=== PATIENT | male | born 1940 | race Caucasian/White ===

== ENCOUNTER → 2016-09-10 | Outpatient (CLI) | payer MEDICARE, OTHER ==
[2016-09-10 14:15] LABS: ANION GAP 7 MEQ/L (8-16); BLOOD UREA NITROGEN 16 MG/DL (7-18); CALCIUM LEVEL 9.3 MG/DL (8.8-10.2); CARBON DIOXIDE LEVEL 29 MEQ/L (21-32); CHLORIDE LEVEL 105 MEQ/L (98-107); CREATININE FOR GFR 0.71 MG/DL (0.70-1.30); GLOMERULAR FILTRATION RATE > 60.0 (>42); GLUCOSE, FASTING 68 MG/DL (83-110); POTASSIUM SERUM 4.8 MEQ/L (3.5-5.1); SODIUM LEVEL 141 MEQ/L (136-145)
== END ==
LOC: M SMT 10:51
PROVIDERS: ATTEND Urology
DX: R97.8 Other abnormal tumor markers (principal); R97.20 Elevated prostate specific antigen [PSA]
CPT/HCPCS: 36415; 80048; 84153; G0463

== ENCOUNTER → 2016-09-22 | Outpatient (CLI) | payer MEDICARE, OTHER ==
--- NOTE | 2016-09-22 15:29 | REP ---
MULTIPARAMETRIC PROSTATE MRI STUDY WITH PRE- AND POST GADOLINIUM ENHANCED IMAGING: TECHNIQUE: Using a phased array surface coil, small field of view imaging was acquired using T2-weighted scans in the axial, coronal, and sagittal imaging planes. Small field of view diffusion-weighted sequences are acquired. Small field of view axial T1-weighted scans are acquired dynamically after the intravenous administration of 15 mL of ProHance. Using a large field of view, the entire pelvis to the level of the aortic bifurcation was imaged using pre-contrast axial T1 and post-contrast axial T1 fat-saturation images. HISTORY: Elevated prostate specific antigen. MRI FINDINGS: There is no MR evidence of pelvic or inguinal lymphadenopathy. No bone lesion is seen. Seminal vesicles appear symmetrical and unremarkable. The prostate measures 6.1 x 5.3 x 5.2 cm for a total volume of 85.4 mL. Nodular signal and hypertrophy of the central gland and transitional zone is consistent with benign prostatic hypertrophy. Three areas of abnormal signal intensity and contrast enhancement are identified in the prostate as regions of interest. First in the left basilar mid anterior transition zone there is an area of type 3 enhancement with mixed signal on T2 and diffusion weighted images. The area measures 1.8 x 0.8 x 2.3 cm for a total volume of 1.82 mL. Overall level of suspicion is 3 out of 5 with clinically significant cancer equivocal. Second in the right mid and apical posterior transitional zone there is an oval area of low signal on T2, which demonstrates predominantly type 3 enhancement characteristics. The area measures 1.5 x 0.9 x 2.0 cm. Overall level of suspicion is 4 out of 5 with clinically significant cancer likely to be present. Lastly, in the bilateral mid and apical medial peripheral zone there are geographic areas of somewhat low signal on T2-weighted images in a heterogeneous pattern. These may represent areas of prostatitis. The area measures approximately 5.2 x 0.3 x 2.0 cm for a total volume of 4.59 mL. Overall level of suspicion is 2 out of 5 with clinically significant cancer unlikely to be present. IMPRESSION: Three focal abnormalities seen in the prostate gland as discussed in detail above as regions of interest on the [employer] software for MR ultrasound fusion utilization. Signed by Salinas Leyva MD 09/22/2016 05:14 P
== END ==
LOC: M RAD 12:43
PROVIDERS: ATTEND Family Medicine
DX: R93.5 Abnormal findings on diagnostic imaging of other abdominal regions, including retroperitoneum (principal); R97.8 Other abnormal tumor markers
CPT/HCPCS: 72197; A9576

== ENCOUNTER → 2016-11-12 | Outpatient (CLI) | payer MEDICARE, OTHER ==
--- NOTE | 2016-11-12 11:35 | REP ---
Prostate sonography: History: Elevated PSA. Sonographic findings: Trans rectal prostate sonography demonstrates unremarkable seminal vesicles. Prostate gland is heterogeneously enlarged with calcifications and cystic changes noted. Glandular dimensions are measured at 6.2 x 4.4 x 5.7 cm with a calculated glandular volume of 80.2 ml. The 0.9 cm nodule is visible in the right side of the prostate gland and another 0.9 cm nodule is visible on the left. Transrectal sonographic guidance provided to Dr. Wilson who performed trans rectal ultrasound guided needle biopsy procedure . Signed by Jesús Hazel MD 11/12/2016 11:27 A
== END ==
LOC: M SMT PRO 08:50
PROVIDERS: ATTEND Urology
DX: R97.8 Other abnormal tumor markers (principal); R97.20 Elevated prostate specific antigen [PSA]
CPT/HCPCS: 55700; 76872; 76942; G0416

== ENCOUNTER → 2016-11-18 | Outpatient (REF) | payer MEDICARE, OTHER | LOC: M SMT 16:51 | PROVIDERS: ATTEND Urology | DX: N40.1 Benign prostatic hyperplasia with lower urinary tract symptoms (principal) | CPT/HCPCS: 81001; 87086; G0463 ==

== ENCOUNTER → 2017-07-06 | Outpatient (CLI) | payer MEDICARE, OTHER | LOC: M RAD 07:15 | DX: G45.3 Amaurosis fugax (principal) | CPT/HCPCS: 93880 ==

== ENCOUNTER → 2017-11-22 | Outpatient (REF) | payer MEDICARE, OTHER ==
[2017-11-22 18:06] LABS: ANION GAP 6 MEQ/L (8-16); BLOOD UREA NITROGEN 12 MG/DL (7-18); CALCIUM LEVEL 9.1 MG/DL (8.8-10.2); CARBON DIOXIDE LEVEL 28 MEQ/L (21-32); CHLORIDE LEVEL 108 MEQ/L (98-107); CREATININE FOR GFR 0.83 MG/DL (0.70-1.30); GLOMERULAR FILTRATION RATE > 60.0 (>42); GLUCOSE, FASTING 97 MG/DL (70-100); NT-PRO BNP 388 PG/ML (<450); POTASSIUM SERUM 4.3 MEQ/L (3.5-5.1); SODIUM LEVEL 142 MEQ/L (136-145)
== END ==
LOC: M SFHCCLAY 09:57
DX: I51.7 Cardiomegaly (principal); Z95.2 Presence of prosthetic heart valve; D61.818 Other pancytopenia
CPT/HCPCS: 80048

== ENCOUNTER → 2021-10-06 | Outpatient (CLI) | payer MEDICARE, OTHER ==
[~2021-10-06] MED LIST: ATOR1TAB19; DILT180C70; FOLI400T5 PO; LISI5TAB11; MULTLIQ7 PO; OCUV1CAP4 PO; TORS20TA2; WARF-23; [UNRECOGNIZED DRUG - CODE]
== END ==
LOC: M WHC 09:02
PROVIDERS: ATTEND Specialist
DX: D64.9 Anemia, unspecified (principal); K76.9 Liver disease, unspecified

== ENCOUNTER 2021-10-30 12:38 | Inpatient (IN) | payer MEDICARE, OTHER ==
[~2021-10-30] VITALS: Ht 172.7 cm; Wt 71.0 kg
[~2021-10-30 12:38] MED LIST changes: -ATOR1TAB19; +ATOR1TAB19 PO; -DILT180C70; +DILT180C70 PO; -LISI5TAB11; +LISI5TAB11 PO; -TORS20TA2; +TORS20TA2 PO; -WARF-23; +WARF-23 PO; -[UNRECOGNIZED DRUG - CODE]; +[UNRECOGNIZED DRUG - CODE] PO
[2021-10-30 15:10] LABS: BASO # 0.1 10^3/uL (0.0-0.2); BASO % 1.6 % (0.0-1.0); EOS # 0.2 10^3/uL (0.0-0.5); EOS % 3.4 % (0.0-3.0); HEMATOCRIT 35.8 % (42.0-52.0); HEMOGLOBIN 11.6 g/dl (13.5-17.5); LYMPH # 0.9 10^3/uL (1.5-5.0); LYMPH % 18.4 % (24.0-44.0); MEAN CORPUSCULAR HEMOGLOBIN 31.5 pg (27.0-33.0); MEAN CORPUSCULAR HGB CONC 32.4 g/dl (32.0-36.5); MEAN CORPUSCULAR VOLUME 97.3 fl (80.0-96.0); MONO # 0.6 10^3/uL (0.0-0.8); MONO % 12.5 % (2.0-8.0); NEUTROPHILS # 3.2 10^3/uL (1.5-8.5); NEUTROPHILS % 63.7 % (36.0-66.0); PLATELET COUNT, AUTOMATED 105 10^3/uL (150-450); RED BLOOD COUNT 3.68 10^6/uL (4.30-6.10); WHITE BLOOD COUNT 5.1 10^3/uL (4.0-10.0)
[2021-10-30] MEDS ORDERED: FUROSEMIDE 40MG/4ML VIAL (J1940) IV ONE (15:30)
[2021-10-30 15:43] LABS: ALBUMIN 3.7 GM/DL (3.2-5.2); BILIRUBIN,DIRECT 0.5 MG/DL (0.0-0.2); BILIRUBIN,TOTAL 1.2 MG/DL (0.2-1.0); CALCIUM LEVEL 9.1 MG/DL (8.8-10.2); CREATININE FOR GFR 2.11 MG/DL (0.70-1.30); GLOMERULAR FILTRATION RATE 32.3 (>35); POTASSIUM SERUM 4.8 MEQ/L (3.5-5.1)
[2021-10-30] MEDS ORDERED: WARFARIN SOD 2.5MG TAB PO SCH (17:00)
[2021-10-30] MEDS ORDERED: HEPARIN SOD (PORCINE) 5000UNITS/ML 1ML VIAL/SYRINGE SC SCH (17:30)
[2021-10-30] MEDS: FUROSEMIDE 40MG/4ML VIAL (J1940) IV SCH ×2 (18:00→23:43)
[2021-10-30 18:04] LABS: INR 1.99
[2021-10-30] MEDS ORDERED: WARF-23 PO (18:08)
[2021-10-30] MEDS ORDERED: FOLI400T13 PO (18:08)
[2021-10-30] MEDS ORDERED: SILD20TA50 PO (18:09)
[2021-10-30] MEDS ORDERED: HOME MED LIST COMPLETE! XX SCH (18:10)
[2021-10-30] MEDS ORDERED: FOLIC ACID 1MG TAB PO SCH (21:00)
[2021-10-30] MEDS: lisinopriL 5 MG TAB PO SCH (21:40)
[2021-10-31] VITALS: BP 132/63
[2021-10-31 04:00] VITALS: BP 126/56
[2021-10-31] MEDS: FUROSEMIDE 40MG/4ML VIAL (J1940) IV SCH ×2 (05:40→11:57)
[2021-10-31 06:09] LABS: INR 2.22
[2021-10-31 08:00] VITALS: BP 129/56
[2021-10-31 08:07] LABS: HEMATOCRIT 34.8 % (42.0-52.0); HEMOGLOBIN 10.9 g/dl (13.5-17.5); MEAN CORPUSCULAR HEMOGLOBIN 30.9 pg (27.0-33.0); MEAN CORPUSCULAR HGB CONC 31.3 g/dl (32.0-36.5); MEAN CORPUSCULAR VOLUME 98.6 fl (80.0-96.0); PLATELET COUNT, AUTOMATED 100 10^3/uL (150-450); RED BLOOD COUNT 3.53 10^6/uL (4.30-6.10); WHITE BLOOD COUNT 4.9 10^3/uL (4.0-10.0)
[2021-10-31 08:56] LABS: CALCIUM LEVEL 8.8 MG/DL (8.8-10.2); CREATININE FOR GFR 1.79 MG/DL (0.70-1.30); GLOMERULAR FILTRATION RATE 39.1 (>35); PHOSPHORUS LEVEL 4.1 MG/DL (2.5-4.9); POTASSIUM SERUM 4.4 MEQ/L (3.5-5.1)
[2021-10-31] MEDS ORDERED: ATORVASTATIN 10 MG TAB PO SCH (09:00)
[2021-10-31] MEDS: lisinopriL 5 MG TAB PO SCH (09:52)
[2021-10-31 09:53] VITALS: BP 129/56
[2021-10-31] MEDS ORDERED: METO25TA PO ×2 (13:08→13:20)
[2021-10-31] MEDS ORDERED: WARFARIN SOD 5MG TAB PO SCH (17:00)
== END 2021-10-31 15:34 | disposition home or self-care (01) | DRG 292 ==
LOC: M ED 12:38 → M ED INP 17:28 → M PCU 23:25
PROVIDERS: ADMIT Internal Medicine; ATTEND Internal Medicine
DX: I50.9 Heart failure, unspecified (principal); N17.9 Acute kidney failure, unspecified; I48.91 Unspecified atrial fibrillation; D64.9 Anemia, unspecified; D69.6 Thrombocytopenia, unspecified; Z95.2 Presence of prosthetic heart valve; Z79.01 Long term (current) use of anticoagulants; Z79.899 Other long term (current) drug therapy

== ENCOUNTER 2022-08-16 10:56 | Day surgery (SDC) | payer MEDICARE, OTHER ==
[~2022-08-16] VITALS: Ht 171.4 cm; Wt 73.4 kg
[~2022-08-16 10:56] MED LIST changes: +ASPI81CH33 PO; +ELIQ5TAB PO; +FOLI400T13 PO; +METO1TAB32 PO; +METO25TA PO; +PANT40TA29 PO; +PRESCAP PO; +SILD100T PO; +SILD20TA50 PO; +SILDENAFIL CITRATE PO; +VITMTA PO; +trimix PO
[2022-08-16] MEDS ORDERED: fentaNYL 100 MCG/2 ML INJECTION As Ordered ONE (11:05)
[2022-08-16] MEDS ORDERED: propofoL 500 MG/50 ML VIAL As Ordered ONE (11:05)
[2022-08-16] MEDS ORDERED: LIDOCAINE 2% 100MG/5ML SDV (FOR ANES.) As Ordered ONE (11:11)
[2022-08-16] MEDS ORDERED: GLYCOPYRROLATE INJ 0.2 MG/ML 2 ML VIAL As Ordered ONE (12:45)
[2022-08-16 13:18] VITALS: TEMP 96.5
[2022-08-16 13:45] VITALS: BP 148/70; O2SAT 98
== END 2022-08-16 14:14 | disposition home or self-care (01) ==
LOC: M OPP 10:56
PROVIDERS: ATTEND Internal Medicine Gastroenterology
DX: D12.6 Benign neoplasm of colon, unspecified (principal); K57.30 Diverticulosis of large intestine without perforation or abscess without bleeding; K64.4 Residual hemorrhoidal skin tags; K64.8 Other hemorrhoids; D50.9 Iron deficiency anemia, unspecified; K44.9 Diaphragmatic hernia without obstruction or gangrene; K29.40 Chronic atrophic gastritis without bleeding; Z79.01 Long term (current) use of anticoagulants; Z79.899 Other long term (current) drug therapy; Z87.891 Personal history of nicotine dependence
CPT/HCPCS: 43239; 45385; 88305; J3010

== ENCOUNTER → 2022-08-26 | Outpatient (CLI) | payer MEDICARE, OTHER ==
[~2022-08-26] MED LIST changes: +ONE-1TAB PO
== END ==
LOC: M CARPUL 10:27
PROVIDERS: ATTEND Family Medicine
DX: I50.31 Acute diastolic (congestive) heart failure (principal); I07.1 Rheumatic tricuspid insufficiency; I27.20 Pulmonary hypertension, unspecified

== ENCOUNTER → 2023-07-14 | Outpatient (REF) | payer MEDICARE, OTHER ==
[~2023-07-14] MED LIST changes: +MULT18TA PO; -ONE-1TAB PO
== END ==
LOC: M SFHCCLAY 13:43
PROVIDERS: ATTEND Family Medicine
DX: D61.818 Other pancytopenia (principal); Z79.01 Long term (current) use of anticoagulants; I35.8 Other nonrheumatic aortic valve disorders; E78.00 Pure hypercholesterolemia, unspecified; R97.8 Other abnormal tumor markers; I48.91 Unspecified atrial fibrillation; Z95.2 Presence of prosthetic heart valve; Z95.4 Presence of other heart-valve replacement

== ENCOUNTER → 2023-08-02 | Outpatient (REF) | payer MEDICARE, OTHER | LOC: M SFHCCLAY 09:53 | PROVIDERS: ATTEND Family Medicine | DX: I27.20 Pulmonary hypertension, unspecified (principal) ==

== ENCOUNTER → 2023-09-28 | Outpatient (REF) | payer MEDICARE, OTHER | LOC: M SFHCCLAY 14:18 | PROVIDERS: ATTEND Physician Assistant | DX: R50.9 Fever, unspecified (principal) ==

== ENCOUNTER 2023-10-04 16:12 | Inpatient (IN) | payer MEDICARE, OTHER ==
[~2023-10-04] VITALS: Ht 170.2 cm; Wt 66.8 kg
[2023-10-04] MEDS ORDERED: JARD1TAB PO (16:33)
[2023-10-04] MEDS ORDERED: EPLE25TA2 PO (16:33)
[2023-10-04 17:27] LABS: HEMATOCRIT 24.8 % (42.0-52.0); MEAN CORPUSCULAR HGB CONC 32.3 g/dl (32.0-36.5); MEAN CORPUSCULAR VOLUME 99.2 fl (80.0-96.0); PLATELET COUNT, AUTOMATED 119 10^3/uL (150-450); WHITE BLOOD COUNT 11.3 10^3/uL (4.0-10.0)
[2023-10-04 17:33] LABS: CALCIUM LEVEL 8.4 MG/DL (8.3-10.6); CK-MB VALUE MASS 1.7 NG/ML (<3.6); CREATININE FOR GFR 1.6 MG/DL (0.70-1.30); GLOMERULAR FILTRATION RATE 44.3 (>35); MB/CK RELATIVE INDEX 8.94 (< OR =4); POTASSIUM SERUM 4.4 MMOL/L (3.5-5.1)
[2023-10-04 18:51] LABS: ANISOCYTOSIS 1+; BASOPHILS 1 % (0-1); EOSINOPHILS 2 % (0-3); LYMPHOCYTES 1 % (16-44); METAMYELOCYTES 1 % (0-0); MONOCYTES 2 % (0-5); MYELOCYTES 1 % (0-0); NEUTROPHILS 91 % (28-66); POIKILOCYTOSIS 1+; POLYCHROMASIA 1+
[2023-10-04 18:53] LABS: HELMET CELLS 1+; TEAR DROP CELLS 1+
[2023-10-04 18:54] LABS: PLATELET ESTIMATE NORMAL (NORMAL)
[2023-10-04 19:26] LABS: CK-MB VALUE MASS 2.1 NG/ML (<3.6)
[2023-10-04 19:27] LABS: MB/CK RELATIVE INDEX 9.54 (< OR =4)
[2023-10-04] MEDS: FUROSEMIDE 40MG/4ML VIAL IV ONE (19:39)
[2023-10-04] MEDS ORDERED: ISOVUE-370 76% 100ML VIAL As Ordered ONE (20:06)
[2023-10-04] MEDS: METOPROLOL SUCC *XL* 12.5MG PER 1/2 TAB (TopROL *XL*) PO SCH (21:00)
[2023-10-04] MEDS ORDERED: HEPARIN DRIP 25,000 UNITS in IV 1 EA IV SCH (21:50)
[2023-10-04 22:18] LABS: INR 2.36; PARTIAL THROMBOPLASTIN TIME 48.2 SECONDS (24.8-34.2)
[2023-10-04] MEDS ORDERED: HEPARIN SOD (PORCINE) 5000UNITS/ML 1ML VIAL/SYRINGE IV PRN (22:20)
[2023-10-04] MEDS ORDERED: METO1TAB32 PO (22:57)
[2023-10-04] MEDS: HEPARIN DRIP 25,000 UNITS in IV 1 EA IV SCH (23:00)
[2023-10-04] MEDS ORDERED: HOME MED LIST COMPLETE! XX SCH (23:00)
[2023-10-05] VITALS (8 sets, daily range): BP systolic 110–138; BP diastolic 53–64; TEMP 97.4–103.5; O2SAT 93–99
[2023-10-05 05:08] LABS: HEMATOCRIT 23.6 % (42.0-52.0); HEMOGLOBIN 7.7 g/dl (13.5-17.5); MEAN CORPUSCULAR HEMOGLOBIN 31.7 pg (27.0-33.0); MEAN CORPUSCULAR HGB CONC 32.6 g/dl (32.0-36.5); MEAN CORPUSCULAR VOLUME 97.1 fl (80.0-96.0); PLATELET COUNT, AUTOMATED 122 10^3/uL (150-450); RED BLOOD COUNT 2.43 10^6/uL (4.30-6.10); WHITE BLOOD COUNT 11.4 10^3/uL (4.0-10.0)
[2023-10-05 06:04] LABS: ALBUMIN 2.6 G/DL (3.2-5.2); ALKALINE PHOSPHATASE 252 U/L (46-116); ALT/SGPT 26 U/L (7.0-40); AST/SGOT 54 U/L (<34); BILIRUBIN,TOTAL 3.4 MG/DL (0.3-1.2); BLOOD UREA NITROGEN 51 MG/DL (9-23); CALCIUM LEVEL 8.5 MG/DL (8.3-10.6); CARBON DIOXIDE LEVEL 21 MMOL/L (20-31); CHLORIDE LEVEL 104 MMOL/L (98-107); CREATININE FOR GFR 1.57 MG/DL (0.70-1.30); GLOMERULAR FILTRATION RATE 45.3 (>35); GLUCOSE, FASTING 85 MG/DL (74-106); POTASSIUM SERUM 4.2 MMOL/L (3.5-5.1); SODIUM LEVEL 135 MMOL/L (136-145); TOTAL PROTEIN 6.1 G/DL (5.7-8.2)
[2023-10-05] MEDS ORDERED: TORSEMIDE 20 MG TAB PO SCH (09:00)
[2023-10-05] MEDS: ATORVASTATIN 10 MG TAB PO SCH (10:08)
[2023-10-05] MEDS: METOPROLOL SUCC *XL* 25MG TAB (TopROL *XL*) PO SCH (10:08)
[2023-10-05] MEDS: PANTOPRAZOLE 40MG TAB (PROTONIX) PO SCH (10:08)
[2023-10-05] MEDS: FUROSEMIDE 40MG/4ML VIAL IV SCH (10:09)
[2023-10-05 11:34] LABS: IRON (FE) 18 UG/DL (65-175); TOTAL IRON BINDING CAPACITY 257 UG/DL (250-425)
[2023-10-05 11:36] LABS: VITAMIN B12 LEVEL 1685 PG/ML (211-911)
[2023-10-05 11:37] LABS: FERRITIN 144.6 NG/ML (10.5-307.3)
[2023-10-05 11:38] LABS: FOLATE > 24.00 NG/ML (>5.4)
[2023-10-05] MEDS: FERRIC CARBOXYMALTOSE INJ 750 MG, VIAL MATE ADAPTER 1 EACH in NS 250 ML IV ONE (13:37)
[2023-10-05] MEDS: ENOXAPARIN 100MG/1ML SYRINGE (J1650 PER 10MG) SC SCH (16:57)
[2023-10-05] MEDS: ACETAMINOPHEN TAB 650MG DOSE (2X325MG) PO ONE (20:37)
[2023-10-05 22:30] LABS: APPEARANCE, URINE CLEAR (CLEAR); BACTERIA, URINE AUTO NEGATIVE (NEGATIVE); BILIRUBIN, URINE AUTO NEGATIVE (NEGATIVE); BLOOD, URINE BLOOD NEGATIVE (NEGATIVE); COLOR, URINE YELLOW (YELLOW); GLUCOSE, URINE (UA) AUTO NEGATIVE (NEGATIVE); GRANULAR CAST, URINE AUTO 1 /LPF; KETONE, URINE AUTO NEGATIVE (NEGATIVE); LEUKOCYTE ESTERASE, URINE AUTO NEGATIVE (NEGATIVE); NITRITE, URINE AUTO NEGATIVE (NEGATIVE); PROTEIN, URINE AUTO NEGATIVE (NEGATIVE); RBC, URINE AUTO 1 /HPF (0-3); SPECIFIC GRAVITY URINE AUTO 1.012 (1.002-1.035); SQUAMOUS EPITHELIAL CELL UR AU 0 /HPF (0-6); WBC, URINE AUTO 1 /HPF (0-3)
[2023-10-05 22:41] LABS: BASO % 0.3 % (0.0-1.0); EOS % 0.2 % (0.0-3.0); HEMATOCRIT 24.1 % (42.0-52.0); HEMOGLOBIN 7.9 g/dl (13.5-17.5); LYMPH # 0.2 10^3/uL (1.5-5.0); MEAN CORPUSCULAR HEMOGLOBIN 31.5 pg (27.0-33.0); MEAN CORPUSCULAR HGB CONC 32.8 g/dl (32.0-36.5); MONO # 0.8 10^3/uL (0.0-0.8); MONO % 7.1 % (2.0-8.0); NEUTROPHILS # 10.5 10^3/uL (1.5-8.5); NEUTROPHILS % 89.2 % (36.0-66.0); PLATELET COUNT, AUTOMATED 144 10^3/uL (150-450); RED BLOOD COUNT 2.51 10^6/uL (4.30-6.10); WHITE BLOOD COUNT 11.7 10^3/uL (4.0-10.0)
[2023-10-05 22:59] LABS: ALBUMIN 2.5 G/DL (3.2-5.2); BILIRUBIN,TOTAL 3.5 MG/DL (0.3-1.2); CALCIUM LEVEL 8.3 MG/DL (8.3-10.6); CREATININE FOR GFR 1.58 MG/DL (0.70-1.30); GLOMERULAR FILTRATION RATE 44.9 (>35); POTASSIUM SERUM 3.7 MMOL/L (3.5-5.1)
[2023-10-05 23:06] LABS: PROCALCITONIN 3.41 ng/ml
[2023-10-06] VITALS (16 sets, daily range): BP systolic 85–140; BP diastolic 52–66; TEMP 97–101.7; O2SAT 6–100
[2023-10-06] MEDS: PIPERACILLIN/TAZOBACTAM SOD 4.5 GM in D5W MINI-BAG PLUS 50 ML IV SCH (00:49)
[2023-10-06] MEDS: ASPIRIN 81MG ENTERIC TABLET PO SCH (01:04)
[2023-10-06] MEDS: ACETAMINOPHEN TAB 650MG DOSE (2X325MG) PO PRN (03:45)
[2023-10-06] MEDS: ACETAMINOPHEN *IV* 1,000 MG in IV 1 EA IV ONE (04:16)
[2023-10-06 06:30] LABS: BASO % 0.3 % (0.0-1.0); EOS % 0.1 % (0.0-3.0); HEMATOCRIT 22.1 % (42.0-52.0); HEMOGLOBIN 7.1 g/dl (13.5-17.5); LYMPH # 0.5 10^3/uL (1.5-5.0); LYMPH % 4.4 % (24.0-44.0); MEAN CORPUSCULAR HEMOGLOBIN 31.3 pg (27.0-33.0); MEAN CORPUSCULAR HGB CONC 32.1 g/dl (32.0-36.5); MEAN CORPUSCULAR VOLUME 97.4 fl (80.0-96.0); MONO # 1.2 10^3/uL (0.0-0.8); MONO % 10.5 % (2.0-8.0); NEUTROPHILS # 9.2 10^3/uL (1.5-8.5); NEUTROPHILS % 83.3 % (36.0-66.0); PLATELET COUNT, AUTOMATED 141 10^3/uL (150-450); RED BLOOD COUNT 2.27 10^6/uL (4.30-6.10)
[2023-10-06 06:44] LABS: INR 1.61; PROTHROMBIN TIME 18.6 SECONDS (12.5-14.5)
[2023-10-06 06:57] LABS: CALCIUM LEVEL 7.9 MG/DL (8.3-10.6); CREATININE FOR GFR 1.51 MG/DL (0.70-1.30); GLOMERULAR FILTRATION RATE 47.3 (>35); POTASSIUM SERUM 3.4 MMOL/L (3.5-5.1)
[2023-10-06] MEDS ORDERED: DOXYCYCLINE HYCLATE 100MG TABLET PO SCH (09:00)
[2023-10-06] MEDS: POTASSIUM CHLORIDE 10MEQ SR TABLET PO ONE (11:49)
[2023-10-06 12:04] LABS: MAGNESIUM LEVEL 2.7 MG/DL (1.8-2.4)
[2023-10-06] MEDS: VANCOMYCIN HCL 1,000 MG, VIAL MATE ADAPTER 1 EACH in D5W 250 ML IV SCH (12:30)
[2023-10-06 14:52] LABS: BILIRUBIN,DIRECT 2.1 MG/DL (<0.4)
[2023-10-06] MEDS: VANCOMYCIN HCL 500 MG in D5W MINI-BAG PLUS 100 ML IV ONE (15:41)
[2023-10-06] MEDS ORDERED: WARFARIN SOD 4MG TAB PO SCH (17:00)
[2023-10-06] MEDS: LACTOBACILLUS ACIDOPHILUS CAP (BACID) PO SCH (17:49)
[2023-10-06 22:44] LABS: HEMATOCRIT 27.2 % (42.0-52.0); HEMOGLOBIN 8.9 g/dl (13.5-17.5); MEAN CORPUSCULAR HEMOGLOBIN 30.2 pg (27.0-33.0); MEAN CORPUSCULAR HGB CONC 32.7 g/dl (32.0-36.5); MEAN CORPUSCULAR VOLUME 92.2 fl (80.0-96.0); PLATELET COUNT, AUTOMATED 137 10^3/uL (150-450); RED BLOOD COUNT 2.95 10^6/uL (4.30-6.10); WHITE BLOOD COUNT 8.6 10^3/uL (4.0-10.0)
[2023-10-07] VITALS (7 sets, daily range): BP systolic 104–148; BP diastolic 52–67; TEMP 98.3–101; O2SAT 96–99
[2023-10-07 05:02] LABS: BASO % 0.4 % (0.0-1.0); EOS # 0.1 10^3/uL (0.0-0.5); EOS % 1.3 % (0.0-3.0); HEMATOCRIT 26.8 % (42.0-52.0); HEMOGLOBIN 8.6 g/dl (13.5-17.5); LYMPH # 0.6 10^3/uL (1.5-5.0); LYMPH % 7.9 % (24.0-44.0); MEAN CORPUSCULAR HEMOGLOBIN 29.4 pg (27.0-33.0); MEAN CORPUSCULAR HGB CONC 32.1 g/dl (32.0-36.5); MEAN CORPUSCULAR VOLUME 91.5 fl (80.0-96.0); MONO # 0.7 10^3/uL (0.0-0.8); MONO % 10.1 % (2.0-8.0); NEUTROPHILS # 5.6 10^3/uL (1.5-8.5); NEUTROPHILS % 79.3 % (36.0-66.0); PLATELET COUNT, AUTOMATED 142 10^3/uL (150-450); RED BLOOD COUNT 2.93 10^6/uL (4.30-6.10)
[2023-10-07 05:16] LABS: INR 1.59; PROTHROMBIN TIME 18.4 SECONDS (12.5-14.5)
[2023-10-07 05:22] LABS: ERYTHROCYTE SEDIMENTATION RATE 85 mm/hr (0-20)
[2023-10-07 05:28] LABS: C REACTIVE PROTEIN QUANTITATIV 12.6 MG/DL (<1.0)
[2023-10-07 05:29] LABS: ALBUMIN 2.3 G/DL (3.2-5.2); BILIRUBIN,TOTAL 3.7 MG/DL (0.3-1.2); CALCIUM LEVEL 8.1 MG/DL (8.3-10.6); CREATININE FOR GFR 1.52 MG/DL (0.70-1.30); POTASSIUM SERUM 3.4 MMOL/L (3.5-5.1); TOTAL PROTEIN 5.8 G/DL (5.7-8.2)
[2023-10-07] MEDS ORDERED: VANCOMYCIN HCL 1,000 MG, VIAL MATE ADAPTER 1 EACH in D5W 250 ML IV SCH (08:00)
[2023-10-07] MEDS: FUROSEMIDE 40MG/4ML VIAL IV SCH (08:47)
[2023-10-07] MEDS: POTASSIUM CHLORIDE 10MEQ SR TABLET PO ONE (08:48)
[2023-10-07] MEDS: cefTRIAXone SOD 2 GM in D5W MINI-BAG PLUS 50 ML IV SCH (08:55)
[2023-10-07] MEDS: PINK BISMUTH SUSP 524MG/30ML ORAL SYRINGE PO PRN (22:31)
[2023-10-08 01:42] LABS: BASO % 0.5 % (0.0-1.0); EOS # 0.1 10^3/uL (0.0-0.5); EOS % 1.3 % (0.0-3.0); HEMATOCRIT 27.8 % (42.0-52.0); LYMPH # 0.6 10^3/uL (1.5-5.0); LYMPH % 8.2 % (24.0-44.0); MEAN CORPUSCULAR HEMOGLOBIN 30.1 pg (27.0-33.0); MEAN CORPUSCULAR HGB CONC 32.4 g/dl (32.0-36.5); MONO # 0.7 10^3/uL (0.0-0.8); MONO % 9.5 % (2.0-8.0); NEUTROPHILS # 6.2 10^3/uL (1.5-8.5); NEUTROPHILS % 79.2 % (36.0-66.0); PLATELET COUNT, AUTOMATED 174 10^3/uL (150-450); RED BLOOD COUNT 2.99 10^6/uL (4.30-6.10); WHITE BLOOD COUNT 7.8 10^3/uL (4.0-10.0)
[2023-10-08 02:21] LABS: CALCIUM LEVEL 8.3 MG/DL (8.3-10.6); CREATININE FOR GFR 1.33 MG/DL (0.70-1.30); GLOMERULAR FILTRATION RATE 54.8 (>35); POTASSIUM SERUM 3.8 MMOL/L (3.5-5.1)
[2023-10-08 03:48] VITALS: BP 126/56; TEMP 101.1; O2SAT 98
[2023-10-08 06:31] LABS: BASO # 0.1 10^3/uL (0.0-0.2); BASO % 0.8 % (0.0-1.0); EOS # 0.1 10^3/uL (0.0-0.5); EOS % 1.2 % (0.0-3.0); HEMATOCRIT 24.8 % (42.0-52.0); HEMOGLOBIN 8.2 g/dl (13.5-17.5); LYMPH # 0.5 10^3/uL (1.5-5.0); LYMPH % 7.6 % (24.0-44.0); MEAN CORPUSCULAR HEMOGLOBIN 30.1 pg (27.0-33.0); MEAN CORPUSCULAR HGB CONC 33.1 g/dl (32.0-36.5); MEAN CORPUSCULAR VOLUME 91.2 fl (80.0-96.0); MONO # 0.7 10^3/uL (0.0-0.8); MONO % 11.1 % (2.0-8.0); NEUTROPHILS # 5.2 10^3/uL (1.5-8.5); NEUTROPHILS % 78.1 % (36.0-66.0); PLATELET COUNT, AUTOMATED 151 10^3/uL (150-450); RED BLOOD COUNT 2.72 10^6/uL (4.30-6.10); WHITE BLOOD COUNT 6.6 10^3/uL (4.0-10.0)
[2023-10-08 06:46] LABS: INR 1.37; PROTHROMBIN TIME 16.4 SECONDS (12.5-14.5)
[2023-10-08 07:03] LABS: CALCIUM LEVEL 8.2 MG/DL (8.3-10.6); CREATININE FOR GFR 1.29 MG/DL (0.70-1.30); GLOMERULAR FILTRATION RATE 56.8 (>35); MAGNESIUM LEVEL 2.4 MG/DL (1.8-2.4); POTASSIUM SERUM 3.4 MMOL/L (3.5-5.1)
[2023-10-08 08:02] VITALS: BP 118/58; TEMP 99.3; O2SAT 99
[2023-10-08] MEDS: POTASSIUM CHLORIDE 10MEQ SR TABLET PO ONE (10:06)
[2023-10-08] MEDS: TORSEMIDE 20 MG TAB PO SCH (10:07)
[2023-10-08 11:45] VITALS: BP 112/55; TEMP 99; O2SAT 99
[2023-10-08 14:18] LABS: C REACTIVE PROTEIN QUANTITATIV 7.8 MG/DL (<1.0)
[2023-10-08 16:09] VITALS: BP 140/60; TEMP 99.2; O2SAT 99
[2023-10-08] MEDS: TORSEMIDE 20 MG TAB PO ONE (17:48)
[2023-10-08 18:34] LABS: PROCALCITONIN 1.15 ng/ml
[2023-10-08 19:45] VITALS: BP 123/56; TEMP 98.6; O2SAT 98
[2023-10-08 23:03] VITALS: BP 150/58; TEMP 99.8; O2SAT 97
[2023-10-09 04:36] VITALS: BP 120/60; TEMP 99.7; O2SAT 97
[2023-10-09 07:50] LABS: BASO % 0.7 % (0.0-1.0); EOS # 0.1 10^3/uL (0.0-0.5); EOS % 1.8 % (0.0-3.0); HEMATOCRIT 24.5 % (42.0-52.0); HEMOGLOBIN 7.9 g/dl (13.5-17.5); LYMPH # 0.6 10^3/uL (1.5-5.0); LYMPH % 9.8 % (24.0-44.0); MEAN CORPUSCULAR HEMOGLOBIN 29.8 pg (27.0-33.0); MEAN CORPUSCULAR HGB CONC 32.2 g/dl (32.0-36.5); MEAN CORPUSCULAR VOLUME 92.5 fl (80.0-96.0); MONO # 0.7 10^3/uL (0.0-0.8); MONO % 10.8 % (2.0-8.0); NEUTROPHILS # 4.6 10^3/uL (1.5-8.5); NEUTROPHILS % 75.7 % (36.0-66.0); PLATELET COUNT, AUTOMATED 162 10^3/uL (150-450); RED BLOOD COUNT 2.65 10^6/uL (4.30-6.10)
[2023-10-09 07:52] VITALS: BP 117/55; TEMP 97.6; O2SAT 95
[2023-10-09 08:01] LABS: INR 1.34; PROTHROMBIN TIME 16.2 SECONDS (12.5-14.5)
[2023-10-09 08:20] LABS: BLOOD UREA NITROGEN 35 MG/DL (9-23); CALCIUM LEVEL 7.7 MG/DL (8.3-10.6); CARBON DIOXIDE LEVEL 22 MMOL/L (20-31); CHLORIDE LEVEL 105 MMOL/L (98-107); GLOMERULAR FILTRATION RATE > 60.0 (>35); GLUCOSE, FASTING 93 MG/DL (74-106); POTASSIUM SERUM 3.7 MMOL/L (3.5-5.1); SODIUM LEVEL 134 MMOL/L (136-145)
[2023-10-09 11:54] VITALS: BP 116/56; TEMP 96.5; O2SAT 100
[2023-10-09 16:01] VITALS: BP 118/57; TEMP 98.6; O2SAT 99
[2023-10-09 20:07] VITALS: BP 122/58; TEMP 96.6; O2SAT 99
[2023-10-09] MEDS: TAMSULOSIN 0.4 MG CAP PO SCH (21:45)
[2023-10-09 23:43] VITALS: BP 149/65; TEMP 97.6; O2SAT 94
[2023-10-10 04:07] VITALS: BP 130/66; TEMP 97.5; O2SAT 96
[2023-10-10 06:37] LABS: BASO # 0.1 10^3/uL (0.0-0.2); BASO % 0.8 % (0.0-1.0); EOS # 0.1 10^3/uL (0.0-0.5); EOS % 2.3 % (0.0-3.0); HEMATOCRIT 25.7 % (42.0-52.0); HEMOGLOBIN 8.3 g/dl (13.5-17.5); LYMPH # 0.6 10^3/uL (1.5-5.0); LYMPH % 9.4 % (24.0-44.0); MEAN CORPUSCULAR HGB CONC 32.3 g/dl (32.0-36.5); MEAN CORPUSCULAR VOLUME 92.8 fl (80.0-96.0); MONO # 0.5 10^3/uL (0.0-0.8); MONO % 8.5 % (2.0-8.0); NEUTROPHILS # 4.8 10^3/uL (1.5-8.5); PLATELET COUNT, AUTOMATED 182 10^3/uL (150-450); RED BLOOD COUNT 2.77 10^6/uL (4.30-6.10); WHITE BLOOD COUNT 6.2 10^3/uL (4.0-10.0)
[2023-10-10 06:48] LABS: INR 1.25; PROTHROMBIN TIME 15.3 SECONDS (12.5-14.5)
[2023-10-10 07:01] LABS: BLOOD UREA NITROGEN 27 MG/DL (9-23); CARBON DIOXIDE LEVEL 24 MMOL/L (20-31); CHLORIDE LEVEL 105 MMOL/L (98-107); CREATININE FOR GFR 0.95 MG/DL (0.70-1.30); GLOMERULAR FILTRATION RATE > 60.0 (>35); GLUCOSE, FASTING 92 MG/DL (74-106); POTASSIUM SERUM 3.4 MMOL/L (3.5-5.1); SODIUM LEVEL 135 MMOL/L (136-145)
[2023-10-10 08:00] VITALS: BP 130/57; TEMP 98.4; O2SAT 98
[2023-10-10] MEDS: POTASSIUM CHLORIDE 10MEQ SR TABLET PO ONE (10:11)
[2023-10-10 12:00] VITALS: BP 138/63; TEMP 97.2; O2SAT 99
[2023-10-10 16:00] VITALS: BP 116/54; TEMP 98.6; O2SAT 99
[2023-10-10 20:29] VITALS: BP 108/58; TEMP 98.2; O2SAT 98
[2023-10-11] VITALS (8 sets, daily range): BP systolic 113–152; BP diastolic 53–66; TEMP 97.3–98.8; O2SAT 94–99
[2023-10-11 06:00] LABS: BASO # 0.1 10^3/uL (0.0-0.2); EOS # 0.2 10^3/uL (0.0-0.5); EOS % 2.9 % (0.0-3.0); HEMOGLOBIN 7.9 g/dl (13.5-17.5); LYMPH # 0.5 10^3/uL (1.5-5.0); LYMPH % 9.2 % (24.0-44.0); MEAN CORPUSCULAR HEMOGLOBIN 29.7 pg (27.0-33.0); MEAN CORPUSCULAR HGB CONC 31.6 g/dl (32.0-36.5); MONO # 0.5 10^3/uL (0.0-0.8); MONO % 7.7 % (2.0-8.0); NEUTROPHILS # 4.6 10^3/uL (1.5-8.5); NEUTROPHILS % 78.7 % (36.0-66.0); PLATELET COUNT, AUTOMATED 174 10^3/uL (150-450); RED BLOOD COUNT 2.66 10^6/uL (4.30-6.10); WHITE BLOOD COUNT 5.9 10^3/uL (4.0-10.0)
[2023-10-11 06:09] LABS: INR 1.28; PROTHROMBIN TIME 15.6 SECONDS (12.5-14.5)
[2023-10-11 06:21] LABS: BLOOD UREA NITROGEN 21 MG/DL (9-23); CALCIUM LEVEL 7.6 MG/DL (8.3-10.6); CARBON DIOXIDE LEVEL 26 MMOL/L (20-31); CHLORIDE LEVEL 107 MMOL/L (98-107); CREATININE FOR GFR 0.89 MG/DL (0.70-1.30); GLOMERULAR FILTRATION RATE > 60.0 (>35); GLUCOSE, FASTING 93 MG/DL (74-106); POTASSIUM SERUM 3.4 MMOL/L (3.5-5.1); SODIUM LEVEL 137 MMOL/L (136-145)
[2023-10-11] MEDS: POTASSIUM CHLORIDE 10MEQ SR TABLET PO ONE ×2 (08:00→10:58)
[2023-10-11] MEDS ORDERED: propofoL 200 MG/20 ML VIAL As Ordered ONE (16:59)
[2023-10-11] MEDS ORDERED: LIDOCAINE 2% 100MG/5ML SDV (FOR ANES.) As Ordered ONE (16:59)
[2023-10-11] MEDS: CETACAINE SPRAY 5GM As Ordered ONE (17:23)
[2023-10-11] MEDS ORDERED: ePHEDrine SULFATE 25 MG/5 ML(5MG/ML) SYRINGE As Ordered ONE (17:46)
[2023-10-12 04:09] VITALS: BP 108/53; TEMP 98.5; O2SAT 98
[2023-10-12 06:06] LABS: HEMATOCRIT 25.7 % (42.0-52.0); HEMOGLOBIN 7.9 g/dl (13.5-17.5); MEAN CORPUSCULAR HEMOGLOBIN 29.4 pg (27.0-33.0); MEAN CORPUSCULAR HGB CONC 30.7 g/dl (32.0-36.5); MEAN CORPUSCULAR VOLUME 95.5 fl (80.0-96.0); PLATELET COUNT, AUTOMATED 165 10^3/uL (150-450); RED BLOOD COUNT 2.69 10^6/uL (4.30-6.10); WHITE BLOOD COUNT 5.8 10^3/uL (4.0-10.0)
[2023-10-12 06:35] LABS: ALBUMIN 2.3 G/DL (3.2-5.2); ALKALINE PHOSPHATASE 268 U/L (46-116); ALT/SGPT 24 U/L (7.0-40); AST/SGOT 40 U/L (<34); BILIRUBIN,TOTAL 1.8 MG/DL (0.3-1.2); BLOOD UREA NITROGEN 17 MG/DL (9-23); CALCIUM LEVEL 8.1 MG/DL (8.3-10.6); CARBON DIOXIDE LEVEL 24 MMOL/L (20-31); CHLORIDE LEVEL 108 MMOL/L (98-107); CREATININE FOR GFR 0.89 MG/DL (0.70-1.30); GLOMERULAR FILTRATION RATE > 60.0 (>35); GLUCOSE, FASTING 87 MG/DL (74-106); POTASSIUM SERUM 3.7 MMOL/L (3.5-5.1); SODIUM LEVEL 137 MMOL/L (136-145); TOTAL PROTEIN 5.9 G/DL (5.7-8.2)
[2023-10-12] MEDS ORDERED: FLOM0.4C39 PO (07:14)
[2023-10-12] MEDS ORDERED: RISATAB3 PO (07:14)
[2023-10-12] MEDS ORDERED: CEFT1INJ4 IV (07:14)
[2023-10-12] MEDS ORDERED: TORS20TA2 PO (07:14)
[2023-10-12 08:10] VITALS: BP 129/54; TEMP 97.8; O2SAT 97
[2023-10-12] MEDS ORDERED: SODIUM CHLORIDE 0.9% INJ 10 ML SYR IV PRN (09:55)
[2023-10-12 10:08] VITALS: BP 123/58; TEMP 97.3; O2SAT 96
[2023-10-12 10:12] VITALS: BP 123/58
[2023-10-12] MEDS ORDERED: LOVE0.8I SC (11:07)
[2023-10-12] MEDS ORDERED: WARF4TAB51 PO (11:07)
[2023-10-12] MEDS: ENOXAPARIN 80MG/0.8ML SYRINGE (J1650 PER 10MG) SC SCH (12:30)
[2023-10-12] MEDS: WARFARIN SOD 5MG TAB PO ONE (13:24)
[2023-10-12] MEDS ORDERED: SODIUM CHLORIDE 0.9% INJ 10 ML SYR IV SCH (18:00)
== END 2023-10-12 14:29 | disposition home health service (06) | DRG 288 ==
LOC: M ED 16:12 → M ED INP 22:18 → M PCU 10-05 02:55
PROVIDERS: ADMIT Family Medicine; ATTEND Internal Medicine
PROC: B246ZZZ Ultrasonography of Right and Left Heart (ICD-10-PCS; principal; 2023-10-05)
PROC: 30233N1 Transfusion of Nonautologous Red Blood Cells into Peripheral Vein, Percutaneous Approach (ICD-10-PCS; 2023-10-06)
PROC: B246ZZ4 Ultrasonography of Right and Left Heart, Transesophageal (ICD-10-PCS; 2023-10-11)
DX: I33.0 Acute and subacute infective endocarditis (principal); I26.93 Single subsegmental thrombotic pulmonary embolism without acute cor pulmonale; G93.41 Metabolic encephalopathy; N17.9 Acute kidney failure, unspecified; R47.01 Aphasia; K52.1 Toxic gastroenteritis and colitis; I48.91 Unspecified atrial fibrillation; I50.9 Heart failure, unspecified; D50.9 Iron deficiency anemia, unspecified; I27.20 Pulmonary hypertension, unspecified; D69.49 Other primary thrombocytopenia; E78.5 Hyperlipidemia, unspecified; K21.9 Gastro-esophageal reflux disease without esophagitis; I50.810 Right heart failure, unspecified; N18.30 Chronic kidney disease, stage 3 unspecified; E87.6 Hypokalemia; K76.1 Chronic passive congestion of liver; I34.0 Nonrheumatic mitral (valve) insufficiency; T36.95XA Adverse effect of unspecified systemic antibiotic, initial encounter; Z79.01 Long term (current) use of anticoagulants; Z79.899 Other long term (current) drug therapy; Z95.3 Presence of xenogenic heart valve; Z87.891 Personal history of nicotine dependence

== ENCOUNTER → 2024-08-28 | Outpatient (CLI) | payer MEDICARE, OTHER ==
[~2024-08-28] MED LIST changes: +CEFT1INJ4 IV; +EPLE25TA15 PO; +JARD1TAB PO; +LOVE0.8I SC; +MAGN400C PO; +PROC20004 SC; +RISATAB3 PO; +TAMS-18 PO; +WARF4TAB51 PO
== END ==
LOC: M CLY 10:46
PROVIDERS: ATTEND Physician Assistant
DX: M79.672 Pain in left foot (principal)

== ENCOUNTER → 2024-09-14 | Outpatient (CLI) | payer MEDICARE, OTHER | LOC: M RAD 12:53 | PROVIDERS: ATTEND Internal Medicine Pulmonary Disease | DX: I26.99 Other pulmonary embolism without acute cor pulmonale (principal) | CPT/HCPCS: 78582; A9540; A9567 ==

== ENCOUNTER → 2024-09-24 | Outpatient (REF) | payer MEDICARE, OTHER | LOC: M SFHCCLAY 14:49 | PROVIDERS: ATTEND Physician Assistant | DX: L82.0 Inflamed seborrheic keratosis (principal) ==